=== PATIENT | male | born 1965 | race African-American/Black ===

== ENCOUNTER 2018-12-01 12:06 | Emergency (ER) | payer OTHER ==
[~2018-12-01] VITALS: Ht 185.4 cm; Wt 98.4 kg
[2018-12-01 12:56] LABS: ABSOLUTE NEUTROPHILS 6.7 thou/uL (1.4-8.2); BASOPHILS 0.6 % (0.0-2.0); EOSINOPHILS 1.3 % (0.0-3.0); HEMATOCRIT 48.4 % (42.0-52.0); HEMOGLOBIN 16.6 gm/dL (14.0-18.0); LYMPHOCYTES 16.3 % (24.0-44.0); MCH 32.9 pg (26.0-34.0); MCHC 34.3 g/dL (28.0-37.0); MONOCYTES 7.1 % (1.0-8.0); PLATELET COUNT 134 thou/uL (150-400); POLYS 74.7 % (36.0-66.0); RBC 5.04 mil/uL (4.50-6.00); RDW 13.2 % (10.5-14.5)
[2018-12-01 13:04] LABS: ANION GAP 7 mmol/L (7-16); BUN 9 mg/dL (7-18); CALCIUM 9.1 mg/dL (8.5-10.1); CHLORIDE 104 mmol/L (98-107); CO2 29 mmol/L (21-32); CREATININE 1.2 mg/dL (0.7-1.3); GLUCOSE 90 mg/dL (74-106); POTASSIUM 4.1 mmol/L (3.5-5.1); SODIUM 140 mmol/L (136-145)
[2018-12-01 13:14] LABS: ALBUMIN 3.9 g/dL (3.4-5.0); SGOT 21 U/L (15-37); SGPT 37 U/L (30-65); TOTAL BILIRUBIN 0.4 mg/dL (<0.1-1.0); TOTAL PROTEIN 7.2 g/dL (6.4-8.2); TROPONIN-I <0.06 ng/mL (<0.06)
[2018-12-01 13:52] VITALS: BP 171/114
--- NOTE | 2018-12-02 10:16 | EKG ---
[place] [address] [employer] [place] [address] ELECTROCARDIOGRAM REPORT Name: MATY ARMENDARIZ Room #: DEP ROBINSON Ham#: [id number] Admission: 12/01/18 Attend Phys: Discharge: 12/01/18 Date of : 61 Report #: [id number] THIS REPORT FOR: //name// [facility] ED Test Date: 2018-12-01 Test Time: 12:25:46 Pat Name: MATY ARMENDARIZ Department: Room: Gender: M [employer] Shop: [place] : 1965 Requested By: Vincent Gomez Order Number: [id number] MD: Humberto Mahajan Measurements Intervals [place] Rate: 81 P: 0 MS: 125 QRS: -1 QRSD: 86 T: 87 QT: 359 QTc: 417 Interpretive Statements Sinus rhythm Probable left atrial enlargement LVH with secondary repolarization abnormality Anterior ST elevation, probably due to LVH No previous ECG available for comparison Electronically Signed On 12-02-2018 10:16:14 CDT by Humberto Mahajan [email or web address] <ELECTRONICALLY SIGNED> By: Humberto Mahajan MD 12/02/18 1016 1225 1225 Humberto Mahajan MD /EPI
== END 2018-12-01 13:21 | disposition home or self-care (01) ==
LOC: ER 12:06
PROVIDERS: Emergency Medicine
DX: M54.6 Pain in thoracic spine (principal); R06.02 Shortness of breath; I10 Essential (primary) hypertension; J45.909 Unspecified asthma, uncomplicated; F17.210 Nicotine dependence, cigarettes, uncomplicated